=== PATIENT | male | born 1985 | race African-American/Black ===

== ENCOUNTER 2019-03-06 20:07 | Emergency (ER) | payer MEDICAID | END 2019-03-06 22:09 | disposition left against medical advice (07) | LOC: ER 21:44 | DX: Z53.21 Procedure and treatment not carried out due to patient leaving prior to being seen by health care provider (principal) ==

== ENCOUNTER 2021-09-16 16:30 | Emergency (ER) | payer MEDICAID ==
[~2021-09-16] VITALS: Ht 167.6 cm; Wt 73.0 kg
[2021-09-16 18:30] LABS: BASOPHILS % 1.2 % (0.0-2.0); EOSINOPHILS % 0.5 % (0.0-5.0); HEMATOCRIT. 37.5 % (42.0-52.0); HEMOGLOBIN. 12.9 g/dL (14.0-18.0); LYMPHOCYTES % 33.9 % (20.0-50.0); MEAN PLATELET VOLUME 6.8 fl (7.4-10.4); MONOCYTES % 5.3 % (2.0-8.0); NEUTROPHILS % 59.1 % (40.0-76.0); PLATELET 233 x1000/uL (130-400); RED BLOOD CELL COUNT 3.91 mill/uL (4.7-6.1); RED CELL DISTRIBUTION WIDTH 12.9 % (11.6-14.6)
[2021-09-16 18:39] LABS: CHLORIDE 103 mEq/L (98-107)
[2021-09-16 18:55] LABS: ETHANOL BLOOD 496 mg/dL
[2021-09-16 19:30] VITALS: BP 118/81
== END 2021-09-16 19:50 | disposition home or self-care (01) ==
LOC: ER 16:30
DX: F10.229 Alcohol dependence with intoxication, unspecified (principal); Y90.8 Blood alcohol level of 240 mg/100 ml or more; I10 Essential (primary) hypertension; W18.39XA Other fall on same level, initial encounter; Y93.89 Activity, other specified; Y92.89 Other specified places as the place of occurrence of the external cause; Y99.8 Other external cause status
CPT/HCPCS: 36415; 73562; 73600; 80053; 80320; 82962; 85025; 99285; G0480